=== PATIENT | male | born 1950 | race Hispanic/Latino ===

== ENCOUNTER 2020-06-20 16:08 | Emergency (ER) | payer MEDICARE ==
--- NOTE | 2020-06-20 16:28 | Emergency Department Report ---
ED Fall HPI - General Chief Complaint: Back Pain/Injury Stated Complaint: FALL Time Seen by Provider: 06/20/20 16:20 Source: patient Mode of arrival: Ambulatory - History of Present Illness Initial Comments: Patient is 69 years old male with no significant past medical history. Patient presented to the ER for evaluation after a fall that happened 2 days ago. Patient stated that he was using a highchair to fix something in the roof and fell landed on his left chest. Patient is complaining of left-sided chest pain. Patient stated that his pain is 0 when he is not moving or taking a deep breath but when he started coughing it hurt more. Patient denied any loss of consciousness, headache, neck pain, abdominal pain or extremities pain. Patient is alert and oriented x3 in no acute distress. MD Complaint: fall -: days(s) Fall From: from height (distance) Place Fall Occurred: home Loss of Consciousness: none Prolonged Down Time?: no Symptoms Prior to Fall: none Location: chest Context: tripped/slipped Associated Symptoms: denies - Related Data Allergies Allergy/AdvReac Type Severity Reaction Status Date / Time No Known Allergies Allergy Unverified 06/20/20 16:10 ED Review of Systems ROS: Stated complaint: FALL Other details as noted in HPI Comment: All other systems reviewed and negative Constitutional: denies: chills, fever Respiratory: denies: cough, shortness of breath, SOB with exertion, SOB at rest Cardiovascular: chest pain Gastrointestinal: denies: abdominal pain Musculoskeletal: denies: back pain Neurological: denies: headache, weakness, numbness, paresthesias, confusion, abnormal gait ED Past Medical Hx - Past Medical History Previous Medical History?: No Additional medical history: HIGH CHOLESTROL/ RENARDS - Surgical History Additional Surgical History: INTESTINE OBSTRUCTION - Social History Smoking Status: Never Smoker Substance Use Type: Alcohol ED Physical Exam - General Limitations: No Limitations General appearance: alert, in no apparent distress - Head Head exam: Present: atraumatic, normocephalic, normal inspection - Eye Eye exam: Present: normal appearance - ENT ENT exam: Present: normal exam - Neck Neck exam: Present: normal inspection, full ROM - Respiratory Respiratory exam: Present: normal lung sounds bilaterally, chest wall tenderness - Cardiovascular Cardiovascular Exam: Present: regular rate, normal rhythm, normal heart sounds - GI/Abdominal GI/Abdominal exam: Present: soft. Absent: distended, tenderness - Extremities Exam Extremities exam: Present: normal inspection, full ROM - Back Exam Back exam: Present: normal inspection, full ROM. Absent: CVA tenderness (R), CVA tenderness (L), paraspinal tenderness, vertebral tenderness - Neurological Exam Neurological exam: Present: alert, oriented X3, CN II-XII intact, normal gait - Skin Skin exam: Present: warm, intact, normal color ED Course Vital Signs 06/20/20 16:13 Temperature 97.7 F Pulse Rate 82 Respiratory 16 Rate Blood Pressure 150/93 O2 Sat by Pulse 99 Oximetry ED Medical Decision Making - Radiology Data Radiology results: report reviewed - Medical Decision Making Patient is 69 years old male with no significant past medical history. Patient presented to the ER for evaluation after a fall that happened 2 days ago. Patient stated that he was using a highchair to fix something in the roof and fell landed on his left chest. Patient is complaining of left-sided chest pain. Patient stated that his pain is 0 when he is not moving or taking a deep breath but when he started coughing it hurt more. Patient denied any loss of consciousness, headache, neck pain, abdominal pain or extremities pain. Patient is alert and oriented x3 in no acute distress. Patient remained stable in the ER with a stable vital sign. Chest x-ray with left rib detail showed fracture rib ninth and 10th. Patient also had history of coughing for approximately 1 month. Patient stated that cough increases when he started to speak. I believe this is most likely postnasal drip. I will provide Flonase and I will give Robitussin AC for the cough. Patient advised to follow- up with his primary care physician in the next 2 to 3 days and to return to the ER if he develop any new symptoms. Critical care attestation.: If time is entered above; I have spent that time in minutes in the direct care of this critically ill patient, excluding procedure time. ED Disposition Clinical Impression: Multiple rib fractures Disposition: TO HOME OR SELFCARE Is pt being admited?: No Condition: Stable Instructions: Rib Fracture Referrals: PRIMARY CARE, [Referring] - 3-5 Days
--- NOTE | 2020-06-20 16:58 | XRay Report ---
LEFT RIBS 3 VIEWS INDICATION / CLINICAL INFORMATION: left rib pain. COMPARISON: None available. FINDINGS: RIBS: No acute, displaced fracture or other acute abnormality. LUNGS: No acute findings. No pneumothorax. Signer Name: Giancarlo Gardner MD Signed: 06/20/2020 4:54 PM Workstation Name: [id number]
[2020-06-20 18:08] VITALS: BP 125/85
== END 2020-06-20 18:10 | disposition home or self-care (01) ==
LOC: ED 16:08
DX: S22.42XA Multiple fractures of ribs, left side, initial encounter for closed fracture (principal); Z98.890 Other specified postprocedural states; W17.89XA Other fall from one level to another, initial encounter; Y93.89 Activity, other specified; Y92.89 Other specified places as the place of occurrence of the external cause; Y99.8 Other external cause status